=== PATIENT | male | born 1990 | race Caucasian/White ===

== ENCOUNTER 2019-04-13 06:28 | Emergency (ER) | payer MEDICAID ==
[~2019-04-13] VITALS: Ht 177.8 cm; Wt 61.4 kg
[2019-04-13] MEDS ORDERED: PENI500T2 PO (06:38)
[2019-04-13] MEDS ORDERED: HYDR-4353 PO (06:38)
[2019-04-13] MEDS ORDERED: penicillin V potassium 500mg tablet PO ONE (06:40)
[2019-04-13] MEDS ORDERED: HYDROcodone/acetaminophen 10/325mg tab PO ONE (06:40)
[2019-04-13 06:48] VITALS: BP 128/92
== END 2019-04-13 06:54 | disposition home or self-care (01) ==
LOC: ER 06:28
DX: K04.7 Periapical abscess without sinus (principal); K21.9 Gastro-esophageal reflux disease without esophagitis; F17.200 Nicotine dependence, unspecified, uncomplicated; Z79.2 Long term (current) use of antibiotics; Z79.899 Other long term (current) drug therapy
CPT/HCPCS: 99283